=== PATIENT | female | born 1945 | race Caucasian/White ===

== ENCOUNTER 2018-03-04 07:49 | Day surgery (SDC) | payer MEDICARE, OTHER ==
[~2018-03-04] VITALS: Ht 172.7 cm; Wt 59.9 kg
[~2018-03-04 07:49] MED LIST: ADULT LOW DOSE81 MG PO; BONIVA150 MG PO; CALCIUM600 MG PO; CENTRUM SILVER1 EAC1 PO; FOLIC ACID1 MG PO; KONDREMUL2.5 ML/5 M PO; LETROZOLE2.5 MG PO; METHOTREXATE2.5 MG PO; MOTRIN800 MG PO; PERCOCET 5-3251 EACH PO; RECLAST 55 MG/100 M IV; SENNA S TABLET1 EA PO; SULFASALAZINE500 M1 PO; VITAMIN D-32000 UNIT PO
--- NOTE | 2018-03-04 09:45 | NUR ---
03/04/18 0945 Lisa Nam 0931 PT ARRIVED DROWSY WITH EVEN AND UNLABORED RESP. PT REPORTS FEELING "VERY GOOD" AND DENIES PAIN OR NAUSEA. 0942 PT SITTING IN SEMI FOWLERS AND SIPPING WATER. 0945 PT ASLEEP.
--- NOTE | 2018-03-05 09:12 | OR ---
[facility] [address], [place] [address] Signed DATE OF OPERATION: 03/04/2018 SURGEON: Reyna Spaulding MD PREOPERATIVE DIAGNOSES: 1. Personal history of colonic polyps, 2007. 2. Diverticulosis. 3. Anemia. POSTOPERATIVE DIAGNOSES: 1. Diffuse moderate punctate hemorrhagic gastritis. 2. Minimal diverticulosis. 3. Minimal internal hemorrhoids. 4. 3 mm rectal polyps x2. PROCEDURES: 1. EGD with CLOtest and biopsies of the bulb and antrum. 2. Colonoscopy without biopsy. ESTIMATED BLOOD LOSS: None. INDICATIONS: Charmaine is a 72-year-old female, who came in 2007 for colonoscopy at age 62. She had hyperplastic and adenomatous polyps removed, along with diverticulosis in the left colon. We asked her to return in 5 years and she acknowledged that she received our letter in the mail. However, she thought 5 years went by too fast. Consequently, she waited for 10 years. She has no lower GI complaints. She happens to live by herself. There is no family history of colon cancer or polyps. 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 I had reviewed that with her more than once in the office and she continues to follow with a Sales Applications Engineer and without a primary care provider. Nevertheless, she was found to be anemic on a recent blood work. She fortunately had that with her in the office. I explained to Charmaine that because of that, she would need both the upper and lower endoscopy. I gave her pamphlets on both and we looked at those together along with the risks including, but not limited to gas, bloating, crampy abdominal pain, bleeding, perforation requiring surgery, and missed diagnosis. We also discussed the need for IV conscious sedation. She had expressed understanding and wished to proceed. PROCEDURE NOTE: Electronically Signed By: REYNA SPAULDING MD 03/05/18 0912 PATIENT NAME: CHARMAINE LLANOS OPERATIVE REPORT DATE OF : 49 REPORT #: [id number] PHYSICIAN: REYNA SPAULDING MD PCP: NO PRIMARY CARE PHYSICIAN REPORT IS CONFIDENTIAL AND NOT TO BE RELEASED WITHOUT AUTHORIZATION [facility] [address], [place] [address] Signed Charmaine was taken into our endoscopy suite and placed in the supine semi-recumbent position. She was given a total of 6 mg of Versed and 100 mcg of fentanyl to cover both cases. Her blood pressure was running low even with IV fluid boluses. The posterior oropharynx was anesthetized with Hurricaine spray. A bite block was utilized for the upper endoscopy. The adult gastroscope was introduced and advanced all the way out into the duodenum under direct visualization of the camera. The duodenum was unremarkable. Pyloric channel showed irritation along her entire stomach. The stomach had moderate hemorrhagic punctate gastritis. We took biopsies out of the pyloric bulb along with the antrum for pathologic review. We also took a biopsy out of the antrum for CLOtest. Upon retroflexion of the scope, we saw no evidence of hiatal hernia. No gastric or esophageal varices. The scope was withdrawn up through the area of the GE junction, which was compliant without stricture. She has minimal to moderate disruption to the Z-line. No Tipton's mucosa, no distal esophagitis. The middle and upper esophagus were unremarkable. After this, the gas was suctioned out and the gastroscope removed. Charmaine tolerated the procedure quite well. Charmaine was then rotated into the left lateral decubitus position. She was maintained on the Versed and fentanyl IV. A digital rectal exam was performed and this was unremarkable. The adult colonoscope was introduced and advanced under direct visualization. Charmaine happens to be quite tall and thin with long arms and legs and her colon is quite long and narrow and it took some extra time, abdominal compression, and some extra sedation in order to get the scope into the cecum itself. Overall, her prep was good. There was just a few areas of liquid particulate stool matter, I could not irrigate and suction out completely. The scope was then slowly withdrawn. Again, we saw the diverticula in the sigmoid colon and just 2 tiny polyps in the mid rectum. Upon retroflexion of the scope, she has minimal internal hemorrhoid tissue. After this, the gas was suctioned out and the colonoscope removed. Charmaine tolerated the procedure quite well. RECOMMENDATIONS: Charmaine will follow up in my office in 7 to 14 days to review her results. Once again, she might consider establishing with a primary care provider. Reyna Spaulding MD [facility] /[id number] Electronically Signed By: REYNA SPAULDING MD 03/05/18 09 PATIENT NAME: CHARMAINE LLANOS OPERATIVE REPORT DATE OF : 49 REPORT #: [id number] PHYSICIAN: REYNA SPAULDING MD PCP: NO PRIMARY CARE PHYSICIAN REPORT IS CONFIDENTIAL AND NOT TO BE RELEASED WITHOUT AUTHORIZATION [address] [place], [place] [address] Signed cc: Evelin Clemente MD Copies: EVELIN CLEMENTE MD ~ Electronically Signed By: REYNA SPAULDING MD 03/05/18 0912 PATIENT NAME: CHARMAINE LLANOS OPERATIVE REPORT DATE OF : 49 REPORT #: [id number] PHYSICIAN: REYNA SPAULDING MD PCP: NO PRIMARY CARE PHYSICIAN REPORT IS CONFIDENTIAL AND NOT TO BE RELEASED WITHOUT AUTHORIZATION
== END 2018-03-04 10:21 | disposition home or self-care (01) ==
LOC: DS 07:49 → OPS 07:49 → DS 09:00 → OPS 10:21
PROVIDERS: Colon & Rectal Surgery
PROC: 0DBP8ZZ Excision of Rectum, Via Natural or Artificial Opening Endoscopic (ICD-10-PCS; 2018-03-04)
PROC: 0DB98ZX Excision of Duodenum, Via Natural or Artificial Opening Endoscopic, Diagnostic (ICD-10-PCS; principal; 2018-03-04 09:00)
PROC: 0DB78ZX Excision of Stomach, Pylorus, Via Natural or Artificial Opening Endoscopic, Diagnostic (ICD-10-PCS; 2018-03-04 09:00)
DX: Z12.11 Encounter for screening for malignant neoplasm of colon (principal); K62.1 Rectal polyp; K57.30 Diverticulosis of large intestine without perforation or abscess without bleeding; K64.8 Other hemorrhoids; K29.71 Gastritis, unspecified, with bleeding; K25.4 Chronic or unspecified gastric ulcer with hemorrhage; F17.210 Nicotine dependence, cigarettes, uncomplicated; D64.9 Anemia, unspecified; Z86.010 Personal history of colon polyps; Z98.890 Other specified postprocedural states; Z79.899 Other long term (current) drug therapy
CPT/HCPCS: 86677; 88305; 99153; G0500; J2250; J3010; J7120

== ENCOUNTER 2020-09-20 10:34 | Day surgery (SDC) | payer MEDICARE, OTHER ==
[~2020-09-20] VITALS: Ht 175.3 cm; Wt 60.6 kg
[~2020-09-20 10:34] MED LIST changes: +ALENDRONATE SOD70 MG PO; +SODIUM FLUORIDE56 GM MT
--- NOTE | 2020-09-20 13:04 | NUR ---
09/20/20 1304 Hardy,Yesika Bennett 1302: NASAL CANNULA REMOVED. PATIENT ON ROOM AIR. PATIENT SLEEPING WHEN NOT DISTURBED. EASILY AWAKENS TO NAME.
--- NOTE | 2020-09-27 17:04 | PATH ---
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 Rule out progression to AML. D46.9 (myelodysplastic syndrome, unspecified) DIAGNOSIS SUMMARY: A. Peripheral blood - Leukocytosis with left shift granulocytosis and 2-3% circulating blasts. - Absolute monocytosis (4 K/uL). - Moderate anemia. - Moderate thrombocytopenia. B. Bone marrow, left side, aspirate smear, aspirate cell block, and trephine biopsy: - Myeloid stem cell neoplasm involving a hypercellular marrow with granulocytic hyperplasia and atypical megakaryopoiesis. - No increase in blasts (2% myeloblasts). - Decreased erythropoiesis. - See Diagnostic Comment. DIAGNOSTIC COMMENT: A previous bone marrow examination is available in our pathology archive for this patient ([id number]). There is significant interval change with development of moderate thrombocytopenia and marked leukocytosis. There is persistent moderate anemia. Previously, based on the available findings at the time, myelodysplastic syndrome is suspected due to increased marrow cellularity and atypical megakaryopoiesis. In the current bone marrow examination, the bone marrow is even more cellular (100%) with further granulocytic hyperplasia. There is persistent dysmegakaryopoiesis. There is no increase in blasts. The peripheral blood shows left granulocytosis and also absolute monocytosis. The monocytes show atypical morphology with reduced cytoplasm. Concurrent flow cytometry analysis on the patient's peripheral blood support this finding showing 12% monocytes by PATIENT NAME: CHARMAINE LLANOS PATHOLOGY DATE OF : 49 REPORT #: [id number] PHYSICIAN: [facility] [facility] PCP: LINDA MORALES MD REPORT IS CONFIDENTIAL AND NOT TO BE RELEASED WITHOUT AUTHORIZATION [facility] [address], [place] [address] Signed immunophenotype. 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 Clinical correlation is recommended. Karyotype analysis, FISH analysis for PDGFR-alpha, PDGFR-beta, FGFR1, JAK2, and BCR-ABL1 gene rearrangement are being performed. MDS FISH analysis is also being performed. The result is discussed with Dr. Cao on 09/24/20. At his request, MDS/MPN panel NGS molecular analysis is also added. These results will be reported by addendum. As part of [facility] Quality Improvement Program, this case was reviewed by another member of our pathology staff. TTP:GP:smn:C1NR PERIPHERAL BLOOD: HEMOGRAM (09/20/2020): WBC 31.4 K/uL, RBC 2.73 M/uL, HGB 7.0 g/dL, HCT 24.0%, MCV 87.9 fL, RDW 17.5%, PLT 82 K/uL. DIFFERENTIAL (manual): 49% neutrophils, 8% bands, 20% lymphocytes, 14% monocytes, 1% basophils, and 8% other. Absolute monocyte count: 4.4 K/uL. The red cells are moderately decreased in number and are normochromic and normocytic. Anisocytosis and poikilocytosis are increased, showing scattered polychromatophilic red blood cells and many stomatocytes. There is left shift granulocytosis with approximately 22% of total leukocytes being myelocytes and metamyelocytes. About 3% immature mononuclear cells are detected, suggestive of blasts. They do not have Flip rods and they have scant cytoplasm. Increased numbers of monocytoid mature cells are noted. It is uncertain whether these cells represent monocytes or atypical granulocytes. Neutrophils do not show overtly dysplastic changes. Lymphocytes show normal morphology. Platelets are moderately reduced in number and show normal morphology. Some circulating nucleated red blood cells are present. BONE MARROW: BONE MARROW ASPIRATE SMEARS: The bone marrow aspirate smears contain abundant hypercellular bone marrow particles. There is granulocytic hyperplasia with left shift maturation. Overtly dysplastic changes are not seen. There is no increase in blasts. Erythroid precursors show complete maturation without overtly dysplastic changes. An atypical lymphoid population is not seen. Plasma cells are rare. Megakaryocytes are normal in number and most are small size and hypolobated. A subset of micromegakaryocytes is also present. Some PATIENT NAME: CHARMAINE LLANOS PATHOLOGY DATE OF : 49 REPORT #: [id number] PHYSICIAN: [facility] PCP: LINDA MORALES MD REPORT IS CONFIDENTIAL AND NOT TO BE RELEASED WITHOUT AUTHORIZATION [address] [address] Signed megakaryocytes have nuclei. A 200-cell differential count yields: 10% myelocytes, 53% metamyelocytes, 27% neutrophils, 5% lymphocytes, and 5% erythroid precursors. BONE MARROW CLOT (ASPIRATE CELL BLOCK) AND TREPHINE BIOPSY: A 2.3 cm decalcified trephine biopsy is available for review, showing a packed marrow (100% cellular). There is left shift granulocytic hyperplasia with a myeloid:erythroid ratio of greater than 10:1. No increase in blasts is appreciated. Lymphoid nodules and other focal lesions are absent. Megakaryocytes appear normal in number with even distribution. Trabecular bone is normal. The clot sections contain many hypercellular marrow particles with similar findings. A few minute aggregates of small mature lymphocytes are seen, morphologically benign. SPECIAL STAINS: - Iron (aspirate smear and clot section): Absent stainable iron store. Negative for ringed sideroblasts. - Reticulin (block A1): Moderate reticulin fibrosis, grade 2 of 3. Appropriate positive controls are reviewed. IMMUNOHISTOCHEMISTRY, BLOCK A1: - CD34: Rare scattered cells are positive (1% blasts). - CD117: No increase in blasts; rare scattered mast cells are strongly positive (high background staining is present). - CD71: Erythroid precursors are positive, decreased. - Myeloperoxidase: Granulocytic precursors are positive, increased. - Factor VIII: Megakaryocytes are positive, mildly increased and consist mostly of small cells with even distribution. TTP:smn FLOW CYTOMETRY: Bone marrow aspirate, flow cytometry: - No increase in blasts (1.5% myeloblasts). - Atypical normal myeloid maturation. - No atypical lymphoid cell population. - See Comment. COMMENT: Myeloid maturation is abnormal with atypical CD13 vs. CD16 profile and aberrant CD56 expression on both granulocytes and monocytes. This may be seen in myeloid neoplasm or reactive conditions. Correlation with clinical, morphologic, and genetic findings is recommended for full interpretation and to assess for disease processes not fully examined by PATIENT NAME: CHARMAINE LLANOS PATHOLOGY DATE OF : 49 REPORT #: [id number] PHYSICIAN: TORY GARCIA PCP: LINDA MORALES MD REPORT IS CONFIDENTIAL AND NOT TO BE RELEASED WITHOUT AUTHORIZATION [facility] [address], [place] [address] Signed flow cytometry analysis, including myelodysplastic syndrome and myeloproliferative neoplasm. FLOW CYTOMETRY ANALYSIS: FLOW DIFFERENTIAL (% Total CD45 vs. SSC gating): Myeloid 89%; Lymphoid 1%; Monocyte 3%; Dim CD45/Blast: 1.5%. Cell Count: 6.4 x 10*3/uL. POPULATION ANALYSIS: BLASTS: Analysis of the dim CD45 gate demonstrates 1.5% myeloblasts by CD34/CD117. LYMPHOID CELLS: The lymphocyte gate comprises 1% of total events and includes 71% T-cells with a CD4:CD8 ratio of 1.1:1 and normal gloria T-cell antigen expression. 4% of lymphocytes are polyclonal B-cells with a kappa:lambda ratio of 1.0:1. The remainders are NK-cells. MYELOID CELLS: The myeloid population comprises 89% of the total events. Decreased SSC, decreased CD10 expression and left-shifted maturation in the CD13 vs CD16 plot are observed. Increased CD56 expression is observed. MONOCYTES: The monocyte population comprises 3% of the total events. Increased CD56 expression is observed. PLASMA CELLS: 0.1% plasma cells are detected in the screening gate neg-dimCD45/CD38. Plasma cells are CD45 dim and positive for CD19. ANTIBODIES USED: KAPPA, LAMBDA, CD20, CD10, CD19, CD23, CD38, FMC7, CD16, CD56, CD8, CD5, CD2, CD4, CD7, CD3, CD14, CD33, CD13, HLADR, CD34, CD117, CD15, CD45: TOTAL ANTIBODIES USED: 24. DKW FINAL DIAGNOSIS PERFORMED BY: Nelly Shepherd MD, Pathologist Sep 21 2020 2:19PM CYTOGENETICS: Pending, to be reported by addendum. FISH ANALYSIS: Pending, to be reported by addendum. GROSS DESCRIPTION: A. The specimen, labeled "Marlon, bone core," is received in formalin and consists of a 2.4 cm andujar trabecular bone core. It is submitted in cassette (A1), following decalcification in Immunocal for 1.5 hours. B. The specimen, labeled "Marlon, clot," is received in formalin and consists PATIENT NAME: CHARMAINE LLANOS PATHOLOGY DATE OF : 49 REPORT #: [id number] PHYSICIAN: TORY GARCIA PCP: LINDA MORALES MD REPORT IS CONFIDENTIAL AND NOT TO BE RELEASED WITHOUT AUTHORIZATION [address] [address] Signed of a 1.8 x 1.5 x 0.2 cm aggregate of blood clot. It is submitted entirely in (B1). [place] (under the direct supervision of a pathologist) The Gross Description was prepared using a voice recognition system. The report was reviewed for accuracy; however, sound-alike word errors, addition and/or deletions may occur. If there is any question about this report, please contact Client Services. ADDITIONAL NOTES: This test was developed and its performance characteristics determined by [facility]. It has not been cleared or approved by the US Food and Drug Administration. The FDA does not require this test to go through premarket FDA review. This test is used for clinical purposes. It should not be regarded as investigational or for research. This laboratory is certified under the Clinical Laboratory Improvement Amendments (CLIA) as qualified to perform high complexity clinical laboratory testing. This test was developed and its performance characteristics determined by [facility]. It has not been cleared or approved by the US Food and Drug Administration. The FDA does not require this test to go through premarket FDA review. This test is used for clinical purposes. It should not be regarded as investigational or for research. This laboratory is certified under the Clinical Laboratory Improvement Amendments (CLIA) as qualified to perform high complexity clinical laboratory testing. This test was developed and its performance characteristics determined by [facility]. It has not been cleared or approved by the US Food and Drug Administration. The FDA does not require this test to go through premarket FDA review. This test is used for clinical purposes. It should not be regarded as investigational or for research. This laboratory is certified under the Clinical Laboratory Improvement Amendments (CLIA) as qualified to perform high complexity clinical laboratory testing. Immunohistochemical and/or in situ hybridization studies were performed on this case with the appropriate positive controls that react as expected. This test was developed and its performance characteristics determined by [facility]. It has not been cleared or approved by the U.S. Food and Drug Administration. The FDA has determined that such clearance or approval is not necessary. This test is used for clinical purposes. It should not be regarded PATIENT NAME: CHARMAINE LLANOS PATHOLOGY DATE OF : 49 REPORT #: [id number] PHYSICIAN: [facility] PATH[facility] PCP: LINDA MORALES MD REPORT IS CONFIDENTIAL AND NOT TO BE RELEASED WITHOUT AUTHORIZATION [facility] [address], [place] [address] Signed as investigational or for research. [facility] is certified under the Clinical Laboratory Improvement Amendments of 1988 (CLIA) as qualified to perform high complexity clinical laboratory testing. In this case, certain antibodies were performed by both immunohistochemistry and flow cytometry analysis because flow cytometry analysis did not fully explain all the light microscopic findings. Immunohistochemistry aided in the analysis. Both methods are deemed medically necessary in this case. PERFORMING LABORATORY: The technical component was performed by [facility], [address] [place] [address] ([employer] Paster Operator: Preet Jones D.O.; CLIA#: [id number]). Professional interpretation was performed by [facility], [facility], [address] [place] [id number] (Solid Fiber Paster Operator: Shaji Berg M.D.; CLIA#: [id number]). Peripheral blood, flow cytometry: - 2% circulating myeloblasts. - Atypical myeloid maturation. - Increased monocytes (12%). - See Comment. COMMENT: Flow cytometry analysis is performed on the patient's peripheral blood to better assess the nature of increased monocytoid cells that are difficult to categorize by morphology. About 2% circulating myeloblasts are detected. Myeloid maturation is atypical with left-shift and CD56 expression on both monocytes and granulocytes. Monocytes are also increased. Correlation with clinical, morphologic, and genetic findings is recommended for full interpretation. FLOW CYTOMETRY ANALYSIS: FLOW DIFFERENTIAL (% Total CD45 vs. SSC gating): Myeloid 74%; Lymphoid 9%; Monocyte 12%; Dim CD45/Blast: 2.0%. Cell Count: 5.8 x 10*3/uL. POPULATION ANALYSIS: Limited flow cytometry analysis is performed on the blood sample to further assess a population of monocytoid cells of unclear differentiation seen on blood smear. BLASTS: Analysis of the dim CD45 gate demonstrates 2% myeloblasts by CD34/CD117. PATIENT NAME: CHARMAINE LLANOS PATHOLOGY DATE OF : 49 REPORT #: [id number] PHYSICIAN: [facility] PCP: LINDA MORALES MD REPORT IS CONFIDENTIAL AND NOT TO BE RELEASED WITHOUT AUTHORIZATION [facility] [address], [place] [address] Signed MYELOID CELLS: The myeloid population comprises 74% of the total events. Increased expression of CD56 and a left-shifted maturation in the CD13 vs CD16 plot are observed. MONOCYTES: The monocyte population comprises 12% of the total events. Increased expression of CD56 is observed. ANTIBODIES USED: CD16, CD56, CD14, CD33, CD13, HLADR, CD34, CD117, CD15, CD45. TOTAL ANTIBODIES USED: 10. JNB The technical and professional components were performed by [facility], [address] [place] [address] (Solid Fiber Paster Operator: Preet Jones D.O.; CLIA#: [id number]). FINAL DIAGNOSIS PERFORMED BY: Nelly Shepherd MD, Pathologist Sep 24 2020 11:59AM The technical and professional components were performed by [facility], [address] [place] [address] ([employer] Fiber Paster Operator: Preet Jones D.O.; CLIA#: [id number]). The technical component was performed by [facility], [address] [place] [address] (Solid Fiber Paster Operator: Preet Jones D.O.; CLIA#: [id number]). Professional interpretation was performed by [facility], [facility], [address] [place] [place] [address] (Solid Fiber Paster Operator: Shaji Berg M.D.; CLIA#: [id number]). IMAGES: A: [id number] A: [id number] REASON FOR ADDENDUM: To add results of additional testing. Bone marrow aspirate, cytogenetic analysis: Result: 46,XX[20] Normal female karyotype Interpretation: Twenty normal cells were observed. There was no evidence of any chromosome abnormality within the limits of this study. Cytogenetic Analysis Summary: Number of Cells Imaged and Analyzed: 20 Number of Cultures used for Analysis: 2 Number of Karyograms: 4 Banding Level: 350-375 Extra Cells Analyzed /Scored: 0 Banding Method: GTW/G The technical and professional components of the cytogenetic analysis were PATIENT NAME: CHARMAINE LLANOS PATHOLOGY DATE OF : 49 REPORT #: [id number] PHYSICIAN: TORY GARCIA PCP: LINDA MORALES MD REPORT IS CONFIDENTIAL AND NOT TO BE RELEASED WITHOUT AUTHORIZATION [address] [address] Signed performed at [facility] ([place], [place], case #[id number]). Detailed report is kept on file. SPECIMEN SOURCE: A. FISH Analysis, MDS AND MPN FISH, BM EDTA CLINICAL HISTORY: 75-year-old female with MDS, now with excessive leukocytosis, anemia, and thrombocytopenia. Rule out progression to AML. D46.9 (myelodysplastic syndrome, unspecified) FISH (fluorescence in situ hybridization) RESULT: Not Detected INTERPRETATION: 5q deletion/monosomy 5: Not detected. 7q deletion/monosomy 7: Not detected. Trisomy 8: Not detected. 20q deletion: Not detected. KMT2A (MLL) rearrangement: Not detected. PDGFRA(4q12) rearrangement: Not detected PDGFRB(5q33) rearrangement: Not detected FGFR1(8p11) rearrangement: Not detected. JAK2 (9p24) rearrangement: Not detected. BCR/ABL1 t(9;22) rearrangement: Not detected. Fluorescence in situ hybridization (FISH) analysis was performed using a specific set of probes for myelodysplastic syndrome. Counts for all probe signals were within the normal reference range. Fluorescence in situ hybridization (FISH) analysis was also performed using an eosinophilia probe set to detect abnormalities commonly associated with lymphoid and myeloid neoplasms with eosinophilia. All the signals were within the normal reference range. No evidence of PDGFR alpha, PDGFR beta, FGFR1, or JAK2 gene rearrangement is detected. Fluorescence in situ hybridization (FISH) analysis was also performed using a tricolor, dual fusion BCR/ABL1 probe set used to detect the(9;22) translocation associated with CML and less commonly ALL or AML. The tri color probe set also detects derivative chromosome 9 deletions. All probe signals were within the normal reference range. This finding represents a NORMAL result. FISH should be interpreted within the context of a full cytogenetic analysis and hematologic evaluation. ISCN: Probe Set Detail: EGR1/P8E078: nuc jazmín 5p15.31(O6O448d9), 5q31(EGR1x2)[200] PATIENT NAME: CHARMAINE LLANOS PATHOLOGY DATE OF : 49 REPORT #: [id number] PHYSICIAN: [facility] PCP: LINDA MORALES MD REPORT IS CONFIDENTIAL AND NOT TO BE RELEASED WITHOUT AUTHORIZATION [facility] [address], [place] [address] Signed N3L534/CEP7: nuc jazmín 7q31(M3U246j3),7q11.2q11.21(CEP7x2)[200] CEP8: nuc jazmín 8q11.1q11.21(CEP8x2)[200] Q50X471: nuc jazímn 20q12(I11P608v0)[200] KMT2A (MLL): nuc jazmín 11q23(5'KMT2A,3'KMT2A)x2(5'KMT2A con 3'JBV2Nf9)[200] PDGFRa (4q12): nuc jazmín(FIP1L1,CHIC2,PDGFRA)x2[200] FGFR1 (8p11): nuc jazmín(XFOY8l6)[200] PDGFRb (5q33): nuc jazmín(PDGFRBx2)[200] JAK2 (9p24): nuc jazmín(JAK2x2)[200] BCR/ABL1/ASS1 t(9;22): nuc jazmín 9q34(ASS1, ABL1)x2,22q11.2(BCRx2)[200] References: Rajesh Benjamin (2013) Hematology Am Soc Hematol Educ Program 2013:504-10. PMID [id number] Wilberto Velasquez and Brittney Goldstein (2011) Hematology 16(3):131-8. PMID: [id number] [place] [employer] in Oncology and Hematology [email or web address] FISH Analysis Summary: Nuclei Scored: 200 Scoring Method: Manual; CPT Code 29457 Number of Probe units: 9 Multiplex Cells analyzed: Interphase Probe sets: Chrom 8: NAHED 8, Chrom 20: [id number], Chrom 5: EGR1, Chrom 5: Y7D964, Chrom 7: CEN7, Chrom 7: [id number], Chrom 11: KMT2A (MLL) 3', Chrom 11: KMT2A (MLL) 5', FGFR1 (8p11), PDGFRa (4q12), PDGFRb (5q33), JAK2 (9p24), Chrom 9: ABL1, Chrom 9: ASS1, Chrom 22: BCR ADDITIONAL NOTES: This test was developed and its performance characteristics determined by [facility] It has not been cleared or approved by the US Food and Drug Administration. The [employer] probe vendor for this study was [employer]. PERFORMING LABORATORY: The technical component of the FISH testing was performed by [facility], [address] [place] [address] (Solid Fiber Paster Operator: Preet Jones D.O.; CLIA#: [id number]). FINAL DIAGNOSIS PERFORMED BY: Nelly Shepherd MD, Pathologist Sep 27 2020 3:18PM REASON FOR ADDENDUM: To add results of additional testing. PATIENT NAME: CHARMAINE LLANOS PATHOLOGY DATE OF : 49 REPORT #: [id number] PHYSICIAN: [facility] PCP: LINDA MORALES MD REPORT IS CONFIDENTIAL AND NOT TO BE RELEASED WITHOUT AUTHORIZATION [address], [place] [address] Signed Diagnostician: Nelly Shepherd MD Pathologist Electronically Signed 09/27/2020 Copies: ~ PATIENT NAME: MARLONCHARMAINE HASEEB PATHOLOGY DATE OF : 49 REPORT #: [id number] PHYSICIAN: [facility] PCP: LINDA MORALES MD REPORT IS CONFIDENTIAL AND NOT TO BE RELEASED WITHOUT AUTHORIZATION
== END 2020-09-20 13:42 | disposition home or self-care (01) ==
LOC: OPS 10:34 → DS 12:00 → OPS 13:42
PROVIDERS: ATTEND Specialist
PROC: 07DR3ZX Extraction of Iliac Bone Marrow, Percutaneous Approach, Diagnostic (ICD-10-PCS; principal; 2020-09-20 12:00)
DX: C92.00 Acute myeloblastic leukemia, not having achieved remission (principal); D69.6 Thrombocytopenia, unspecified; M06.9 Rheumatoid arthritis, unspecified; Z90.12 Acquired absence of left breast and nipple; Z92.21 Personal history of antineoplastic chemotherapy; Z79.899 Other long term (current) drug therapy
CPT/HCPCS: 80053; 83615; 85025; 85610; 88184; 88185; 88305; 88311; 88313; 88341; 88342; 88360; 88377; 99153; G0500; J2250; J3010; J7121

== ENCOUNTER 2021-04-10 11:03 | Day surgery (SDC) | payer MEDICARE, OTHER ==
[~2021-04-10] VITALS: Ht 175.3 cm; Wt 58.0 kg
[~2021-04-10 11:03] MED LIST changes: +CALCIUM 600 +1 EA14 PO; -CALCIUM600 MG PO; +HYDROXYCHLOROQ200 MG PO; +MIRALAX17 GM PO; +ZOFRAN4 MG PO
--- NOTE | 2021-04-10 12:19 | NUR ---
04/10/21 Geo[facility] Anastasia Jerome 1214-PATIENT ARRIVED TO PACU ON 2L NC RR EVEN. PATIENT AWAKE DENIES PAIN OR NAUSEA. PATIENT LAYING PRONE. BANDAID CDI.
--- NOTE | 2021-05-03 09:32 | PATH ---
[facility] [address] [facility] [place], [place] [address] Signed THIS IS AN ADDENDUM REPORT SPECIMEN(S): A BONE MARROW - CORE SPECIMEN(S): B BONE MARROW - ASPIRATION SPECIMEN(S): C COMPREHENSIVE FLOW CYTOMETRY ONLY, BM EDTA TUBE CLINICAL HISTORY: Bone marrow biopsy. 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 Please make quantitative assessments of allergic frequency for ASXL1, NRAs, EZH2, RUN x 1, TET2. See attached. 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 Peripheral blood - Normocytic anemia and thrombocytopenia with 2% circulating blasts. - Leukocytosis with left shifted maturation, mild dyspoiesis, and monocytosis. Absolute monocyte count 5,000/uL. B. Bone marrow biopsy and aspiration: - Hypercellular marrow, 99%, with 2% blasts. - Decreased erythroid and megakaryocytic lineages with dyspoiesis. - Myeloid hyperplasia with dyspoiesis. - MF-1 reticulin fibrosis. 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 - See Diagnostic Comment. DIAGNOSTIC COMMENT: The marrow is hypercellular with trilineage dyspoiesis. Megakaryocytes and erythroid lineages are decreased in number. Myeloid precursors predominate. Prior FISH probes for BCR/ABL1, PDGFRA, PDGFRB are negative. Prior NGS tests were abnormal. The current FISH panel for MDS is normal. Chromosome analysis and NGS testing for MDS/CMML panel are pending. Those results will be reported in an addendum. 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 Prior NGS testing revealed mutations in ASXL1 and NRAS as well as other variants of PATIENT NAME: CHARMAINE LLANOS PATHOLOGY DATE OF : 49 REPORT #: [id number] PHYSICIAN: TORY PATHOLOGY PCP: LINDA MORALES MD REPORT IS CONFIDENTIAL AND NOT TO BE RELEASED WITHOUT AUTHORIZATION [facility] [address] [place], [place] [address] Signed uncertain significance. A FISH panel for MDS was reported as negative in his most recent bone marrow (see [id number]; 09/20/2020). The patient is status post 4 cycles of Vidaza. The last chemotherapy treatment is reportedly on March 11, 2021. This marrow is for re-staging. PERIPHERAL BLOOD: HEMOGRAM (04/10/2021): WBC 33.3 K/ul, RBC 3.16 M/ul, HGB 8.8 g/dl, HCT 28.2%, MCV 69.2 fl, MCH 28 pg, MCHC 31 g/dl., PLT 133 K/ul. Absolute monocyte count: 5,000/ul. MANUAL DIFFERENTIAL COUNT: Blasts 2%, metamyelocytes 4%, bands 5%, neutrophils 52%, lymphocytes 22%, monocytes 15%, eosinophils 0%, basophils 0%. The red blood cells are normocytic and normochromic with minimal anisopoikilocytosis. The neutrophils are have a left shifted maturation with mild dyspoiesis. Monocytes are increased with dyspoietic nuclear features. Lymphocytes are composed of small mature appearing forms. Platelets appear decreased in number with no platelet clumping or RBC microangiopathic effect identified. 2% blasts are identified. BONE MARROW: ASPIRATE SMEARS/TOUCH IMPRINT: The aspirate smears are hemodilute and sub-optimal for evaluation. Scattered erythroid precursors show adequate maturation with essentially normal morphology. The myeloid precursors show full maturation with unremarkable morphology. There is no increase in blasts. Megakaryocytes are identified with a normal morphology. BONE MARROW DIFFERENTIAL COUNT (300 cells): Blasts 2%, promyelocytes 1%, myelocytes 6%, metamyelocytes/bands/segs 50%, erythroid precursors 21%, lymphocytes 11%, monocytes 6%, eosinophils 2%, plasma cells 1%. M:E ratio: 2.3:1 BONE MARROW CORE BIOPSY/ASPIRATE CLOT/CELL BLOCK: The aspirate clot section and the core biopsy are adequate for evaluation. The core biopsy demonstrates unremarkable trabecular bone. The cellularity is increased for age, estimated at 99%. The erythroid precursors are markedly decreased in numbers.. The myeloid precursors are increased with mild dyspoiesis. Blasts are not significantly increased. Megakaryocytes are decreased in number with dyspoiesis.. No granulomas, atypical lymphoid aggregates or foreign malignant cells are detected. SPECIAL STAINS (with adequate controls): PATIENT NAME: CHARMAINE LLANOS PATHOLOGY DATE OF : 49 REPORT #: [id number] PHYSICIAN: TORY GARCIA PCP: LINDA MORALES MD REPORT IS CONFIDENTIAL AND NOT TO BE RELEASED WITHOUT AUTHORIZATION [address] [address] Signed - Iron (aspirate smear): Appears decreased but insufficient marrow spicules are present for evaluation. No ring sideroblasts are identified. - Iron (aspirate clot): Decreased by Prussian Blue stain. No ring sideroblasts are identified. - Reticulin (block A1): Increased, MF-1. - PAS (block B1): Decreased megakaryocytes with abnormal morphology. IMMUNOHISTOCHEMISTRY STAINS (performed on block B1 with adequate controls). - CD34: 1-2% - CD117: 2-3% - CD71: 10% FLOW CYTOMETRY: Bone marrow, flow cytometry: - 1.6% myeloblasts with aberrant expression of CD7. - Atypical myeloid maturation. - Normal number of monocytes with aberrant expression. - No lymphoid or plasma cell clonality is identified. - See Comment. COMMENT: Blasts are not increased but have aberrant positive expression with CD7. Myeloid cells predominate with decreased CD10 expression, increased CD56 expression and atypical maturation in the CD13 vs CD16 plot scan. Monocytes are not increased but have increased expression of CD56 and decreased expression of CD14 These findings are nonspecific but do correlate with the patient's prior history of myelodysplastic/myeloproliferative neoplasm, unclassifiable. FLOW CYTOMETRY ANALYSIS: FLOW DIFFERENTIAL (% Total CD45 vs. SSC gating): Myeloid 89%; Lymphoid 2%; Monocyte 4%; Dim CD45/Blast: 1.6%. Cell Count: 5.9 x 10*3/uL. POPULATION ANALYSIS: BLASTS: Analysis of the dim CD45 gate demonstrates 1.6% myeloblasts by CD34/CD117 with partial aberrant expression of CD7. LYMPHOID CELLS: The lymphocyte gate comprises 2% of total events and includes 90% T-cells with a CD4:CD8 ratio of 2.4:1 and normal gloria T-cell antigen expression. 4% of lymphocytes are polyclonal B-cells with a kappa:lambda ratio of 1:1. The remainders are NK-cells. MYELOID CELLS: The myeloid population comprises 89% of the total events. Decreased SSC, decreased CD10 expression, increased CD56 expression and an atypical maturation in the CD13 vs CD16 plot are observed. PATIENT NAME: CHARMAINE LLANOS PATHOLOGY DATE OF : 49 REPORT #: [id number] PHYSICIAN: TORY PATHOLOGY PCP: LINDA MORALES MD REPORT IS CONFIDENTIAL AND NOT TO BE RELEASED WITHOUT AUTHORIZATION [facility] [address] [place], [place] [address] Signed MONOCYTES: The monocyte population comprises 4% of the total events. Increased expression of CD56, decreased expression of CD14 and decreased expression of HLA-DR are observed. PLASMA CELLS: A significant plasma cell population is not detected in the neg-dimCD45/CD38 screening gate. ANTIBODIES USED: KAPPA, LAMBDA, CD20, CD10, CD19, CD23, CD38, FMC7, CD16, CD56, CD8, CD5, CD2, CD4, CD7, CD3, CD14, CD33, CD13, HLADR, CD34, CD117, CD15, CD45. TOTAL ANTIBODIES USED: 24. JNB FINAL DIAGNOSIS PERFORMED BY: Jc Baer MD, Apr 11 2021 1:54PM CYTOGENETICS: Chromosome analysis is pending and the results will be reported in an addendum. FISH ANALYSIS: Peripheral blood, FISH (fluorescence in situ hybridization) RESULT: Not Detected INTERPRETATION: 5q deletion/monosomy 5: Not detected. 7q deletion/monosomy 7: Not detected. Trisomy 8: Not detected. 20q deletion: Not detected. KMT2A (MLL) rearrangement: Not detected. Fluorescence in situ hybridization (FISH) analysis was performed using a specific set of probes for myelodysplastic syndrome. Counts for all probe signals were within the normal reference range. This finding represents a NORMAL result. FISH should be interpreted within the context of a full cytogenetic analysis and hematologic evaluation. ISCN: Probe Set Detail: EGR1/O9B069: nuc jazmín 5p15.31(A0W210q9), 5q31(EGR1x2)[200] G3V067/CEP7: nuc jazmín 7q31(O6S350z0),7q11.2q11.21(CEP7x2)[200] CEP8: nuc jazmín 8q11.1q11.21(CEP8x2)[200] F23I878: nuc jazmín 20q12(N48O649m8)[200] KMT2A (MLL): nuc jazmín 11q23(5'KMT2A,3'KMT2A)x2(5'KMT2A con 3'WLQ2Lj9)[200] References: Rajesh Benjamin (2013) Hematology Am Soc Hematol Educ Program 2013:504-10. PMID [id number] PATIENT NAME: CHARMAINE LLANOS PATHOLOGY DATE OF : 49 REPORT #: [id number] PHYSICIAN: TORY PATHOLOGY PCP: LINDA MORALES MD REPORT IS CONFIDENTIAL AND NOT TO BE RELEASED WITHOUT AUTHORIZATION [facility] [address] [place] [address] [place] [address] Signed Wilberto Velasquez and Brittney Goldstein, (2010) Hematology 16(3):131-8. PMID: [id number] FISH Analysis Summary: Nuclei Scored: 200 Scoring Method: Manual; CPT Code 55970 Number of Probe units: 4 Multiplex Cells analyzed: Interphase Probe sets: Chrom 8: NAHED 8, Chrom 20: B42Q100, Chrom 5: EGR1, Chrom 5: M5X663, Chrom 7: CEN7, Chrom 7: G8J3690, Chrom 11: KMT2A (MLL) 3', Chrom 11: KMT2A (MLL) 5 MOLECULAR / PCR: NGS panel for MDS is ordered per the clinician's request. An addendum report will be issued. GROSS DESCRIPTION: Two specimens are received in two containers, labeled "EM." A. The specimen, labeled "EM, core," is received in formalin and consists of one cylindrical bone core fragment measuring 0.3 cm in diameter and 1.2 cm in length. The specimen is entirely submitted in cassette (A1) following decalcification in Immunocal. B. The specimen, labeled "EM, clot," is received in formalin and consists of thickened clot material measuring 2.2 x 1.8 x 0.3 cm in aggregate. The specimen is filtered and entirely submitted in cassette (B1). Bone marrow inventory also includes: Two peripheral smears, one EDTA tube bone marrow, one heparin tube. AT (under the direct supervision of a pathologist) The Gross Description was prepared using a voice recognition system. The report was reviewed for accuracy; however, sound-alike word errors, addition and/or deletions may occur. If there is any question about this report, please contact Client Services. ADDITIONAL NOTES: Immunohistochemical and/or in situ hybridization studies were performed on this case with the appropriate positive controls that react as expected. This test was developed and its performance characteristics determined by [facility]. It has not been cleared or approved by the U.S. Food and Drug Administration. The FDA has determined that such clearance or approval is not necessary. This test is used for clinical purposes. It should not be regarded as investigational or for research. [facility] is certified under the PATIENT NAME: CHARMAINE LLANOS PATHOLOGY DATE OF : 49 REPORT #: [id number] PHYSICIAN: TORY PATHOLOGY PCP: LINDA MORALES MD REPORT IS CONFIDENTIAL AND NOT TO BE RELEASED WITHOUT AUTHORIZATION [facility] [address] [place], [place] [address] Signed Clinical Laboratory Improvement Amendments of 1988 (CLIA) as qualified to perform high complexity clinical laboratory testing. This assay has not been validated for specimens that have been decalcified. In this case, certain antibodies were performed by both immunohistochemistry and flow cytometry analysis because flow cytometry analysis did not fully explain all the light microscopic findings. Immunohistochemistry aided in the analysis. Both methods are deemed medically necessary in this case. This test was developed and its performance characteristics determined by [facility] [employer] It has not been cleared or approved by the US Food and Drug Administration. The Oligo DNA probe vendor for this study was [employer]. This test was developed and its performance characteristics determined by [facility]. It has not been cleared or approved by the US Food and Drug Administration. The FDA does not require this test to go through premarket FDA review. This test is used for clinical purposes. It should not be regarded as investigational or for research. This laboratory is certified under the Clinical Laboratory Improvement Amendments (CLIA) as qualified to perform high complexity clinical laboratory testing. PERFORMING LABORATORY: The technical component was performed by [facility], [address] [place] [address] ([employer]: Preet Jones D.O.; CLIA#: [id number]). Professional interpretation was performed at [facility], [address] [place] [address]. The technical component of the FISH testing was performed by [facility], [address] [place] [address] [place] [address] ([employer]: Preet Jones D.O.; CLIA#: [id number]). Professional interpretation was performed by [facility], [address] [place] [address] [place] [address] ([employer]: Preet Jones D.O.; CLIA#: [id number]). FINAL DIAGNOSIS PERFORMED BY: Brad Abreu MD, Pathologist Apr 12 2021 3:37PM The technical component was performed by [facility], [address] [place] [address] ([employer]: Maisha Casas MD; CLIA# [id number]). The technical component was performed by [facility], [address] [place] [address] [place] [address] ([employer]: Preet Jones D.O.; CLIA#: [id number]). Professional PATIENT NAME: CHARMAINE LLANOS PATHOLOGY DATE OF : 49 REPORT #: [id number] PHYSICIAN: TORY GARCIA PCP: LINDA MORALES MD REPORT IS CONFIDENTIAL AND NOT TO BE RELEASED WITHOUT AUTHORIZATION [address] [address] Signed interpretation was performed by [facility], [facility], [address] [place], [place] [address]. IMAGES: A: [id number] A: [id number] REASON FOR ADDENDUM: To add results of additional testing. Bone marrow aspirate, cytogenetics oncology chromosome analysis: Karyotype: 46,XX[20] Interpretation: NORMAL FEMALE KARYOTYPE Cytogenetic analysis shows a normal female karyotype in all cells analyzed. Comments: Standard cytogenetic analysis may not detect subtle submicroscopic rearrangements and may not include metaphases from abnormal cell populations with low mitotic rates or present in low levels. Test Detail: Metaphases Counted: 20 Metaphases Analyzed: 20 Metaphases Karyotyped: 2 Culture Type: 24EB, 48EB Banding Technique: GTG Banding Resolution: 400 CPT Codes: 01740, 36439*, 31072 *Professional interpretation service generally billed directly to carriers by [facility]. The Technical Component Processing, Analysis and Professional Component of this test was completed at [facility] [place], [address] [place] [address], [place] / [address] / [phone] / CLIA #[id number] / [employer](s): Bella Patel M.D. (Accession / Case No: [id number] / [id number]). The performance characteristics of this test have been determined by the performing laboratory. This test has not been approved by the FDA. The FDA has determined such clearance or approval is not necessary. This laboratory is CLIA certified to perform high complexity clinical testing. Images that may be included within this report are medical center representative of the patient but not all testing in its entirety and should not be used to render a result. The CPT codes provided with our test descriptions are based on AMA guidelines and are for informational purposes only. Correct CPT coding PATIENT NAME: CHARMAINE LLANOS PATHOLOGY DATE OF : 49 REPORT #: [id number] PHYSICIAN: TORY PATHOLOGY PCP: LINDA MORALES MD REPORT IS CONFIDENTIAL AND NOT TO BE RELEASED WITHOUT AUTHORIZATION [facility] [address] [place], [place] [address] Signed is the sole responsibility of the billing republican. Please direct any questions regarding coding to the payer being billed. To add results of additional testing. Bone marrow aspirate, [facility] MDS/CMML profile: Results Summary: - 5 clinically significant variants detected: ASXL1 C878Qtn*12; NRAS G13D; RUNX1 I404Dxa*53; STAG2 R614*; TET2 R419Tfn*27 - Pertinent negatives: NO abnormalities detected in the following genes: FLT3, IDH1, IDH2, NPM1 Interpretation INTERPRETATION: - ASXL1 and RUNX1 mutations can be seen in various myeloid neoplasms, and are associated with a poor prognosis in MDS, AML, MPN and CMML. - NRAS mutations can be seen in various myeloid neoplasms and are associated with poor prognosis in MDS, particularly in patients predicted to have lower-risk MDS, MPN, and CMML. They can be associated with monocytic lineage involvement in the neoplastic process. - STAG2 mutations can be seen in various myeloid neoplasms, and are associated with a poor prognosis in MDS, AML, and MPN. - TET2 mutations can be seen in various myeloid neoplasms, and are associated with an increased response to hypomethylating agents and a poor prognosis in MDS after hematopoietic stem cell transplantation. - Please correlate with morphology, clinical information, and other laboratory results. The Technical Component Processing and Analysis of this test was completed at [facility] [place], [address] [place] [address], [place] / [address] / [phone] / CLIA #[id number] / [employer](s): Bella Patel M.D. The Professional Component of this test was completed at [facility] [place], [address] [facility] [place], [place] / [address] / [phone] / CLIA #[id number] / [employer]eder(s): Nelson Laguerre D.O. (Accession/CaseNo: [id number]) The performance characteristics of this test have been determined by the performing laboratory. This test has not been approved by the FDA. The FDA has determined such clearance or approval is not necessary. This laboratory is CLIA certified to perform high complexity clinical testing. Images that may be included within this report are medical center representative of the patient but not all testing in its entirety and should not be used to render a result. PATIENT NAME: CHARMAINE LLANOS PATHOLOGY DATE OF : 49 REPORT #: [id number] PHYSICIAN: TORY PATHOLOGY PCP: LINDA MORALES MD REPORT IS CONFIDENTIAL AND NOT TO BE RELEASED WITHOUT AUTHORIZATION [facility] [address] [place], [place] [address] Signed Diagnostician: Jc Baer MD Pathologist Electronically Signed 05/03/2021 Copies: ~ PATIENT NAME: CHARMAINE LLANOS HASEEB PATHOLOGY DATE OF : 49 REPORT #: [id number] PHYSICIAN: TORY GARCIA PCP: LINDA MORALES MD REPORT IS CONFIDENTIAL AND NOT TO BE RELEASED WITHOUT AUTHORIZATION
== END 2021-04-10 13:15 | disposition home or self-care (01) ==
LOC: OPS 11:03 → DS 11:09 → OPS 12:00
PROVIDERS: ATTEND Specialist
PROC: 079T3ZX Drainage of Bone Marrow, Percutaneous Approach, Diagnostic (ICD-10-PCS; 2021-04-10)
PROC: 07DR3ZX Extraction of Iliac Bone Marrow, Percutaneous Approach, Diagnostic (ICD-10-PCS; principal; 2021-04-10 12:00)
DX: C93.10 Chronic myelomonocytic leukemia not having achieved remission (principal); D64.9 Anemia, unspecified; D69.6 Thrombocytopenia, unspecified; M05.9 Rheumatoid arthritis with rheumatoid factor, unspecified; Z85.3 Personal history of malignant neoplasm of breast; Z87.891 Personal history of nicotine dependence; Z90.12 Acquired absence of left breast and nipple
CPT/HCPCS: 85025; 88184; 88185; 88305; 88311; 88313; 88341; 88342; 88360; 88377; 99153; G0500; J2250; J3010; J7121

== ENCOUNTER 2021-05-23 18:08 | Emergency (ER) | payer MEDICARE, OTHER ==
[~2021-05-23] VITALS: Ht 175.3 cm; Wt 57.8 kg
--- OUTSIDE RECORDS SUMMARY | 2021-05-23 18:12 | XMS ---
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 Tyler has no Care Guidelines for this patient. [place] VISIT COUNT (12 MO.) 1 [facility] [place] TOTAL 1 NOTE: Visits indicate total known visits. ED/C VISIT TRACKING (12 MO.) 05/23/2021 18:08 [facility] [place] TYPE: Emergency COMPLAINT: - CHEST PAIN INPATIENT VISIT TRACKING (12 MO.) No inpatient visits to display in this time frame [email or web address]
[2021-05-23] MEDS ORDERED: MORPHINE S10 MG/5 ML PO (18:23)
--- NOTE | 2021-05-24 09:10 | EKG ---
[facility] [address] [facility] [place] [address] Signed Normal sinus rhythm RSR' or QR pattern in V1 suggests right ventricular conduction delay Borderline ECG No previous ECGs available Confirmed by LINDA MORALES MD ([id number]) on 05/24/2021 9:09:50 AM Electronically Signed By: LINDA MORALES MD 05/24/21 0910 PATIENT NAME: CHARMAINE LLANOS HASEEB Electrocardiogram DATE OF : 49 PHYSICIAN: LINDA MORALES MD REPORT #: [id number] REPORT IS CONFIDENTIAL AND NOT TO BE RELEASED WITHOUT AUTHORIZATION
[2021-07-14] MEDS ORDERED: HYDROXYUREA500 MG PO (08:13)
[2021-07-14] MEDS ORDERED: TEMAZEPAM7.5 MG PO (08:14)
[2021-07-14] MEDS ORDERED: OXYCODONE HCL5 MG PO (08:16)
[2021-07-14] MEDS ORDERED: CONSTULOSE10 GM/15 M PO (08:32)
[2021-07-14] MEDS ORDERED: CEPHALEXIN250 MG PO (09:33)
== END 2021-05-23 21:59 | disposition short-term general hospital (02) ==
LOC: ED 18:08
DX: J93.9 Pneumothorax, unspecified (principal); C92.10 Chronic myeloid leukemia, BCR/ABL-positive, not having achieved remission; M06.9 Rheumatoid arthritis, unspecified; Z87.891 Personal history of nicotine dependence; Z79.899 Other long term (current) drug therapy; Z20.822 Contact with and (suspected) exposure to COVID-19
CPT/HCPCS: 71045; 71260; 80053; 84484; 85007; 85025; 85379; 93005; 93010; 99285-25; C9803; J1885; J2060; Q9967

== ENCOUNTER → 2021-07-14 | Emergency (ER) | payer MEDICARE, OTHER ==
[~2021-07-14] VITALS: Ht 182.9 cm; Wt 72.8 kg
[~2021-07-14] MED LIST changes: +CEPHALEXIN250 MG PO; +CONSTULOSE10 GM/15 M PO; +HYDROXYUREA500 MG PO; +MORPHINE S10 MG/5 ML PO; +OXYCODONE HCL5 MG PO; +TEMAZEPAM7.5 MG PO
--- OUTSIDE RECORDS SUMMARY | 2021-07-14 08:08 | XMS ---
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 Care History Medical/Surgical 05/24/2021 [facility] - Patient is currently established with [facility]. If patient is seen in the ED during business hours. Please contact [facility] at [facility]. Care Recommendation: If this patient has had 5 or more Emergency Department visits in the last 12 months.\T\nbsp; Patient will require education on the scope and purpose of the ED as an acute care provider not a Primary Care Provider and should not be utilized for chronic conditions.\T\nbsp; These are guidelines and the provider should exercise clinical judgment when providing care. E.D. VISIT COUNT (12 MO.) [address] TOTAL 3 NOTE: Visits indicate total known visits. ED/UCC VISIT TRACKING (12 MO.) 07/14/2021 08:06 [facility] [place] TYPE: Emergency COMPLAINT: - POSSIBLE SEIZURE,FALL 05/23/2021 22:46 [facility] [place] TYPE: Emergency DIAGNOSES: - CP - Pneumothorax, unspecified 05/23/2021 18:[address] [facility] [place] TYPE: Emergency COMPLAINT: - CHEST PAIN DIAGNOSES: - Rheumatoid arthritis, unspecified - Chest pain, unspecified - Personal history of nicotine dependence - Other senior living (current) drug therapy - Pneumothorax, unspecified - Chronic myeloid leukemia, BCR/ABL-positive, not having achieved remission INPATIENT VISIT TRACKING (12 MO.) No inpatient visits to display in this time frame [id number]
--- NOTE | 2021-07-14 12:48 | EKG ---
[facility] [address] [facility] [place] [address] Signed Sinus rhythm with premature atrial complexes with aberrant conduction Incomplete right bundle branch block ST depression, consider subendocardial injury Prolonged QT Abnormal ECG When compared with ECG of 23-MAY-2021 18:10, aberrant conduction is now present ST now depressed in Inferior leads T wave inversion now evident in Inferior leads T wave inversion now evident in Anterior leads Confirmed by MONICA POST DO ([id number]) on 07/14/2021 12:47:40 PM Electronically Signed By: MONICA POST DO 07/14/21 1248 PATIENT NAME: CHARMAINE LLANOS Electrocardiogram DATE OF : 49 PHYSICIAN: MONICA POST DO REPORT #: [id number] REPORT IS CONFIDENTIAL AND NOT TO BE RELEASED WITHOUT AUTHORIZATION
== END ==
LOC: ED 08:06
DX: S06.5X9A Traumatic subdural hemorrhage with loss of consciousness of unspecified duration, initial encounter (principal); E87.6 Hypokalemia; R56.9 Unspecified convulsions; D64.9 Anemia, unspecified; D69.6 Thrombocytopenia, unspecified; W18.12XA Fall from or off toilet with subsequent striking against object, initial encounter; M06.9 Rheumatoid arthritis, unspecified; Z20.822 Contact with and (suspected) exposure to COVID-19; Z87.891 Personal history of nicotine dependence; Z88.8 Allergy status to other drugs, medicaments and biological substances; Z79.899 Other long term (current) drug therapy
CPT/HCPCS: 70450; 71045; 72125; 72170; 80053; 80500; 81001; 84484; 85007; 85025; 86850; 86900; 86901; 93005; 93010; 96374; 96375; 99285-25; C9803; J1953; J2250; J3480; J7060; U0003